=== PATIENT | male | born 1970 | race Caucasian/White ===

== ENCOUNTER 2020-08-12 15:47 | Emergency (ER) | payer MEDICAID ==
[~2020-08-12] VITALS: Ht 167.6 cm; Wt 75.0 kg
[2020-08-12 16:17] VITALS: BP 134/72
[2020-08-12] MEDS ORDERED: ketorolac tromethamine 15mg/ml inj. IM ONE (16:50)
[2020-08-12] MEDS ORDERED: IBUP-1984 PO (16:52)
== END 2020-08-12 17:09 | disposition home or self-care (01) ==
LOC: ER 15:47
DX: M79.672 Pain in left foot (principal); Z88.0 Allergy status to penicillin; Z79.899 Other long term (current) drug therapy
CPT/HCPCS: 73630; 96372; 99284; J1885

== ENCOUNTER 2020-12-25 07:37 | Emergency (ER) | payer MEDICAID ==
[~2020-12-25] VITALS: Ht 167.6 cm; Wt 68.2 kg
[2020-12-25 07:46] VITALS: BP 138/97
== END 2020-12-25 08:21 | disposition home or self-care (01) ==
LOC: ER 07:37
DX: M25.561 Pain in right knee (principal); Z79.2 Long term (current) use of antibiotics
CPT/HCPCS: 99281

== ENCOUNTER 2024-09-29 12:28 | Emergency (ER) | payer MEDICAID ==
[~2024-09-29] VITALS: Ht 162.6 cm; Wt 58.6 kg
[2024-09-29 13:24] LABS: BASOPHILS % (AUTO) 0.2 % (0-1); EOSINOPHILS % (AUTO) 0 % (0-6); HEMATOCRIT 41.4 % (42.0-52.0); HEMOGLOBIN 14.1 g/dl (14.0-17.9); LYMPHOCYTES # (AUTO) 0.9 X10'3 (1.1-4.8); LYMPHOCYTES % (AUTO) 9.1 % (21-51); MEAN CORPUSCULAR HEMOGLOBIN 29.4 PG (27.0-31.0); MEAN CORPUSCULAR HGB CONC 34.1 g/dL (33.0-36.5); MEAN CORPUSCULAR VOLUME 86.2 FL (78-98); MEAN PLATELET VOLUME 7.3 FL (7.4-10.4); MONOCYTES # (AUTO) 0.8 X10'3 (0-0.9); MONOCYTES % (AUTO) 8.4 % (2-12); NEUTROPHILS % (AUTO) 82.3 % (42-75); PLATELET COUNT 226 X10'3 (140-440); RED CELL DISTRIBUTION WIDTH 13.3 % (11.5-14.5); WHITE BLOOD COUNT 9.7 X10'3 (4.5-11.0)
[2024-09-29 13:47] LABS: ALBUMIN 3.6 G/DL (3.4-5.0); BLOOD UREA NITROGEN 25 MG/DL (7-18); BUN/CREATININE RATIO 25.5 (10.0-20.0); CALCIUM 8.4 MG/DL (8.5-10.1); CREATININE 0.98 MG/DL (0.60-1.10); GLUCOSE 151 MG/DL (70-104); PRO BRAIN NATRIURETIC PEPTIDE 121 PG/ML (0-125); eCRCL 73 ML/MIN; eGFR 80 ML/MIN
[2024-09-29 13:55] LABS: ANION GAP 7 (8-16); CHLORIDE 94 MMOL/L (99-107); POTASSIUM 3.8 MMOL/L (3.5-5.1); SODIUM 130 MMOL/L (135-145)
[2024-09-29 15:46] VITALS: BP 127/83; PULSE 67; RESP 14; TEMP 99.3; O2SAT 94
== END 2024-09-29 17:34 | disposition left against medical advice (07) ==
LOC: ER 12:29
DX: R06.02 Shortness of breath (principal); R50.9 Fever, unspecified; R05.9 Cough, unspecified; Z53.21 Procedure and treatment not carried out due to patient leaving prior to being seen by health care provider
CPT/HCPCS: 36415; 71045; 80048; 83880; 85025